=== PATIENT | female | born 1995 | race Caucasian/White ===

== ENCOUNTER 2019-02-16 17:00 | Emergency (ER) | payer BC ==
--- NOTE | 2019-02-16 18:12 | UC ---
Complaint Female HPI - HPI Summary HPI Summary: 23-year-old female presents with onset of dysuria, frequency, urgency, and suprapubic "cramping" this morning. Patient took Azo earlier today for her symptoms. Denies fever, chills, back or flank pain, hematuria, or vaginal discharge. - History Of Current Complaint Chief Complaint: UCGU Stated Complaint: URINARY COMPLAINT Time Seen by Provider: 02/16/19 18:07 Hx Obtained From: Patient Hx Last Menstrual Period: IUD Pain Intensity: 7 - Allergies/Home Medications Allergies/Adverse Reactions: Allergies Allergy/AdvReac Type Severity Reaction Status Date / Time Sulfa (Sulfonamide Allergy Itching Verified 02/16/19 17:49 Antibiotics) Home Medications: Home Medications Albuterol HFA INHALER* [Ventolin HFA Inhaler*] 1 - 2 puff INH Q6H PRN 02/16/19 [ History Confirmed 02/16/19] Iud 1 udc VAGINAL ONCE 02/16/19 [History Confirmed 02/16/19] Miconazole TOPICAL CREAM 2%* [Monistat 2%*] 1 applic TOPICAL DAILY 02/16/19 [ History Confirmed 02/16/19] Pumpkin Seed Extract/Soy Germ [Azo Bladder Control/Go-Le] 1 cap PO ONCE [History Confirmed 02/16/19] PMH/Surg Hx/FS Hx/Imm Hx Respiratory History: Asthma - Surgical History Surgical History: None - Family History Known Family History: Positive: Non-Contributory - Social History Occupation: Student Lives: Dormitory/Roommates Alcohol Use: Rare Substance Use Type: None Smoking Status (MU): Never Smoked Tobacco Review of Systems All Other Systems Reviewed And Are Negative: Yes Constitutional: Negative: Fever, Chills Respiratory: Positive: Negative Cardiovascular: Positive: Negative Gastrointestinal: Positive: Abdominal Pain - Supra pubic "cramping" Genitourinary: Positive: Dysuria, Frequency, Urgency. Negative: Hematuria, Vaginal/Penile Discharge, Abnormal Bleeding Musculoskeletal: Positive: Negative Neurological: Positive: Negative Physical Exam - Summary Physical Exam Summary: GENERAL APPEARANCE: Well developed, well nourished, alert and cooperative, and appears to be in no acute distress. CARDIAC: Normal S1 and S2. No S3, S4 or murmurs. Rhythm is regular. There is no peripheral edema, cyanosis or pallor. Extremities are warm and well perfused. Capillary refill is less than 2 seconds. Peripheral pulses intact. LUNGS: Clear to auscultation without rales, rhonchi, wheezing or diminished breath sounds. ABDOMEN: Positive bowel sounds. Soft, nondistended, nontender. No guarding or rebound. No masses or hepatosplenomegally. No CVA tenderness. MUSKULOSKELETAL: ROM intact to all extremities. No joint erythema or tenderness. Normal muscular development. Normal gait. SKIN: Skin normal color, texture and turgor with no lesions or eruptions. Triage Information Reviewed: Yes Vital Signs: Initial Vital Signs Temp 98.4 F 02/16/19 17:54 Pulse 103 02/16/19 17:54 Resp 20 02/16/19 17:54 BP 121/75 02/16/19 17:54 Pulse Ox 92 02/16/19 17:54 Vital Signs Reviewed: Yes Complaint Female Dx - Course Course Of Treatment: 23-year-old female presents with onset of dysuria, frequency, urgency, and suprapubic "cramping" this morning. Patient took Azo earlier today for her symptoms. Denies fever, chills, back or flank pain, hematuria, or vaginal discharge. Afebrile. Vital signs stable. Patient's exam is overall unremarkable. Urine was negative. Because patient took Azo we were unable to perform a [id number] urinalysis however based on her symptoms I will treat her empirically for UTI with Macrobid twice a day 5 days pending urine culture results. Patient is to return here or follow up [facility] in 3-5 days if symptoms are not improving. Anticipatory guidance and warning symptoms are reviewed with the patient. Verbalizes understanding and agrees with plan of care. - Differential Dx/Diagnosis Differential Diagnosis/HQI/PQRI: Pelvic Inflammatory Disease, , Sexually Transmitted Disease, Urinary Tract Infection Provider Diagnosis: UTI (urinary tract infection) Discharge ED - Sign-Out/Discharge Documenting (check all that apply): Patient Departure All imaging exams completed and their final reports reviewed: No Studies - Discharge Plan Condition: Stable Disposition: HOME Prescriptions: Nitrofurantoin Monohyd/M-Cryst [Macrobid 100 mg Capsule] 100 mg PO BID #10 cap Patient Education Materials: Urinary Tract Infection in Women (ED) Referrals: No Primary Care Phys,NOPCP [Primary Care Provider] - Additional Instructions: Because you took Azo, we were unable to perform a urine test in the clinic today. Based on your symptoms we will start you on an antibiotic to treat for a possible urinary tract infection. We send the urine to the lab for a culture to see if any bacteria grow out and make sure the antibiotic you were prescribed is appropriate to treat the infection. It may take 48-72 hours to get these results. We will contact you if there is any change in your treatment plan. Start Macrobid 1 tab twice a day for 5 days. You may continue to use the Azo for the next 2 days to help with the discomfort. Drink plenty of fluids. To help prevent urinary tract infections: 1) Be sure to wipe from front to back. 2) Urinate immediately after any sexual intercourse. 3) Avoid taking bubble baths. Return here or follow [facility] with [facility]5 days if symptoms do not improve. Seek immediate medical attention in the emergency room if you develop fever greater than 100.5 F, have severe abdominal pain, persistent vomiting, or any worsening of symptoms. - Billing Disposition and Condition Condition: STABLE Disposition: Home
== END 2019-02-16 18:37 | disposition home or self-care (01) ==
LOC: UCCORT 17:00
DX: N39.0 Urinary tract infection, site not specified (principal); J45.909 Unspecified asthma, uncomplicated; Z79.899 Other long term (current) drug therapy; Z88.0 Allergy status to penicillin
CPT/HCPCS: 84702; 87077; 87086; 87186; 99202; G0463